=== PATIENT | female | born 1980 | race Caucasian/White ===

== ENCOUNTER 2021-11-15 11:14 | Emergency (ER) | payer BC, MEDICAID ==
[~2021-11-15] VITALS: Ht 170.2 cm; Wt 103.9 kg
[2021-11-15 11:21] VITALS: BP 148/91
[2021-11-15] MEDS ORDERED: KETOROLAC 60 MG/2 ML VIAL IM ONE (11:45)
[2021-11-15] MEDS ORDERED: BACITRACIN OINT 500 UNITS/GM PKT TP ONE (12:05)
[2021-11-15] MEDS ORDERED: LIDOCAINE JELLY 2% 30 ML TUBE TP ONE ×2 (12:29→12:35)
--- NOTE | 2021-11-15 13:00 | NUR ---
wound care completed.
[2021-11-15] MEDS ORDERED: ACET-8386 PO ×2 (13:02→13:32)
[2021-11-15] MEDS ORDERED: [UNRECOGNIZED DRUG - CODE] TP (13:02)
[2021-11-15] MEDS ORDERED: BACI1PAC6 TP (13:02)
[2021-11-15 13:26] VITALS: BP 122/80
--- NOTE | 2021-11-15 13:27 | NUR ---
Patient discharged with v/s stable. Written and verbal after care instructions given and explained. Patient alert, oriented and verbalized understanding of instructions. Ambulatory with steady gait. All questions addressed prior to discharge. ID band removed. Patient advised to follow up with PMD. Rx of norco, lidocaine topical given. Patient educated on indication of medication including possible reaction and side effects. Opportunity to ask questions provided and answered.
== END 2021-11-15 13:27 | disposition home or self-care (01) ==
LOC: MED 11:14
DX: T23.201A Burn of second degree of right hand, unspecified site, initial encounter (principal); T20.20XA Burn of second degree of head, face, and neck, unspecified site, initial encounter; R03.0 Elevated blood-pressure reading, without diagnosis of hypertension; Z98.84 Bariatric surgery status; Z88.0 Allergy status to penicillin; Z79.899 Other long term (current) drug therapy; X58.XXXA Exposure to other specified factors, initial encounter; Y93.89 Activity, other specified; Y92.89 Other specified places as the place of occurrence of the external cause; Y99.8 Other external cause status
CPT/HCPCS: 16020; 90471; 90715; 96372; 99284; J1885